=== PATIENT | male | born 1975 | race Caucasian/White ===

== ENCOUNTER 2018-08-23 14:14 | Emergency (ER) | payer SELFPAY ==
[~2018-08-23] VITALS: Ht 182.9 cm; Wt 103.0 kg
[~2018-08-23 14:14] MED LIST: ACHD5005 PO; CPR500T PO; HYDR-3714; HYDR-707 PO; INDO25CA15 PO; METR500T PO; NAPR-243 PO; TRAM-21 PO; TRM50T PO
[2018-08-23 14:34] VITALS: BP 156/94
--- NOTE | 2018-08-23 14:35 | ED Upper Extremity ---
General Stated Complaint: THINKS TOE ON RIGHT FOOT IS BROKE, Source: patient Exam Limitations: no limitations History of Present Illness Date Seen by Provider: Aug 23, 2018 Time Seen by Provider: 14:33 Initial Comments To ER with reports of bruising and pain to the distal right foot. This began after getting out of the hot tub when he tripped 3 days ago while in [place] on vacation. He's had the third and fourth toes krystina taped together but is concerned that the fracture may be more proximal such as in the foot itself due to the location of the bruising. Onset: last week Severity: moderate Pain/Injury Location: right other Method of Injury: fell Modifying Factors: Worse With Movement Allergies and Home Medications Allergies Coded Allergies: Fish Product Derivatives (Unverified Allergy, Severe, ANAPHYLAXIS, 11/21/08 ) Penicillins (Unverified Allergy, Mild, SWELLING, 07/05/09) Home Medications No Active Prescriptions or Reported Meds Patient Home Medication List Home Medication List Reviewed: Yes Review of Systems Constitutional: see HPI EENTM: see HPI Respiratory: no symptoms reported Cardiovascular: no symptoms reported Genitourinary: no symptoms reported Musculoskeletal: see HPI Skin: no symptoms reported Psychiatric/Neurological: No Symptoms Reported Past Thyqccv-Tkysva-Vrltdb Hx Patient Social History Recent Foreign Travel: No Contact w/Someone Who Travel: No Seasonal Allergies Seasonal Allergies: No Past Medical History Orthopedic Headaches /Migraines Reproductive Disorders: No Pancreatitis Family Medical History Heart Disease, GI Disease Physical Exam Vital Signs Vital Signs - First Documented 08/23/18 14:34 Temp 96.0 Pulse 109 Resp 18 B/P (MAP) 156/94 (114) Capillary Refill : Height, Weight, BMI Height: 6'0" Weight: 230lbs. oz. 104.824322nv; 31.19 BMI Method:Stated General Appearance: WD/WN, no apparent distress HEENT: PERRL/EOMI, normal ENT inspection Neck: non-tender, full range of motion Respiratory: no respiratory distress, no accessory muscle use Gastrointestinal: normal bowel sounds, non tender Wrist: Yes normal inspection, Yes non-tender Hand: normal inspection, non-tender Skin: normal color, warm/dry There is an abrasion to the distal aspect of the right fourth toe just proximal to the nail, there is no apparent nail injury. There is bruising proximal to this in the distal third and fourth metatarsals. Progress/Results/Core Measures Results/Orders My Orders Orders - LEXI PACHECO APRN Hydrocodone/Apap 5/325 Tablet (Lortab 5 (08/23/18 14:45) Foot, Right, 3 View (08/23/18 14:31) Medications Given in ED Current Medications Medications Dose Ordered Sig/Mara Route Start Time Stop Time Status Last Admin Dose Admin Acetaminophen/ Hydrocodone Bitart 1 tab ONCE ONCE PO 08/23/18 14:45 08/23/18 14:46 DC 08/23/18 14:44 1 TAB Vital Signs/I&O 08/23/18 14:34 Temp 96.0 Pulse 109 Resp 18 B/P (MAP) 156/94 (114) Departure Communication (Admissions) discussed with him the absence of fracture on the foot x-ray. 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 Impression Primary Impression: Contusion of foot Qualified Codes: S90.32XA - Contusion of left foot, initial encounter Disposition: 01 HOME, SELF-CARE Condition: Stable Departure-Patient Inst. Decision time for Depature: 15:10 Referrals: [facility] (PCP/Family) Primary Care Physician Patient Instructions: Contusion (DC) Add. Discharge Instructions: 1. Continue with current treatment except, you do not have to tape the toes again. Return to ER for any concerns. Scripts Hydrocodone/Acetaminophen ([place] 5-325 Tablet) 1 Each Tablet 1 EACH PO Q6H PRN for PAIN-MODERATE MDD 10, #14 TAB Prov: LEXI PACHECO APRN 08/23/18 LEXI PACHECO APRN Aug 23, 2018 14:35
[2018-08-23] MEDS ORDERED: HYDROcodone/APAP 5 MG/325 MG (LORTAB) TAB PO ONE (14:45)
--- NOTE | 2018-08-23 15:08 | Diagnostic Imaging Report ---
INDICATION: Injury to the right foot. TIME OF EXAM: 02:56 p.m. FINDINGS: Three views of the right foot were obtained. The metatarsals appear intact. Phalanges are intact. Midfoot and hindfoot are unremarkable. No fractures are seen. IMPRESSION: No acute bony abnormality is detected. Dictated by: Dictated on workstation # [id number]
[2018-08-23] MEDS ORDERED: HYDR-4226 PO (15:19)
== END 2018-08-23 15:32 | disposition home or self-care (01) ==
LOC: EDUNIT# 14:14 → ER 14:17
DX: S90.32XA Contusion of left foot, initial encounter (principal); G43.909 Migraine, unspecified, not intractable, without status migrainosus; Z87.19 Personal history of other diseases of the digestive system; Z82.49 Family history of ischemic heart disease and other diseases of the circulatory system; Z88.0 Allergy status to penicillin; W01.0XXA Fall on same level from slipping, tripping and stumbling without subsequent striking against object, initial encounter
CPT/HCPCS: 73630; 99283

== ENCOUNTER 2019-04-13 21:04 | Emergency (ER) | payer OTHER ==
[~2019-04-13] VITALS: Ht 182.8 cm; Wt 101.3 kg
[~2019-04-13 21:04] MED LIST changes: +HYDR-4226 PO
[2019-04-13] MEDS ORDERED: METH-313 PO (21:17)
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
[2019-04-13 23:28] VITALS: BP 145/90
[2019-04-13] MEDS ORDERED: RX-NAPROXEN (NAPROSYN) 250 MG TAB PPK#4 PO STA (23:29)
[2019-04-13] MEDS ORDERED: RX-CYCLOBENZAPRINE 10 MG (FLEXERIL) TAB PPK#3 PO ONE (23:29)
[2019-04-13] MEDS ORDERED: RX-CYCLOBENZAPRINE 10 MG (FLEXERIL) TAB PPK#3 PO STA (23:29)
[2019-04-13] MEDS ORDERED: RX-NAPROXEN (NAPROSYN) 250 MG TAB PPK#4 PO ONE (23:30)
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
== END 2019-04-13 23:28 | disposition home or self-care (01) ==
LOC: ER 21:13 → EDUNIT# 21:13 → ER 23:28
DX: S20.219A Contusion of unspecified front wall of thorax, initial encounter (principal); S39.012A Strain of muscle, fascia and tendon of lower back, initial encounter; G43.909 Migraine, unspecified, not intractable, without status migrainosus; Z88.0 Allergy status to penicillin; Z82.49 Family history of ischemic heart disease and other diseases of the circulatory system; V49.40XA Driver injured in collision with unspecified motor vehicles in traffic accident, initial encounter; Y92.411 Interstate highway as the place of occurrence of the external cause
CPT/HCPCS: 71046; 72100; 72131